=== PATIENT | male | born 1975 | race Two or more races ===

== ENCOUNTER 2016-06-08 18:40 | Emergency (ER) | payer OTHER ==
[~2016-06-08] VITALS: Ht 182.9 cm; Wt 109.0 kg
[2016-06-08 18:42] VITALS: BP 155/89; PULSE 86; RESP 16; TEMP 98.1; O2SAT 98
[2016-06-08] MEDS ORDERED: DICL75TA PO (19:14)
--- NOTE | 2016-06-08 19:17 | PD ---
HPI Chief Complaint: Injury Time Seen by Provider: 19:16 Travel History International Travel<30 days: No Contact w/Intl Traveler<30days: No Traveled to known affect area: No History of Present Illness HPI 41-year-old male presents to emergency department with complaints of right calf pain and swelling. He states that sometime around 12:30 this afternoon he had caught his leg between 2 machines at work. He states that one was backing up into the other and caught his right leg. He is up-to-date with immunizations. He was able to work the rest of the day and comes in for evaluation. He states the pain is mild to moderate. Worse with walking. Some relief with elevation. He is up-to-date with immunizations. He denies any numbness or tingling. Patient denies pain with movement of the toes. PFSH Past Medical History Medical History: Denies Significant Hx Immunizations Current: Yes Tetanus Vaccination: < 5 Years Influenza Vaccination: No Past Surgical History Surgical History: No Previous Surgery Social History Alcohol Use: No Tobacco Use: No Substance Use: No Allergies-Medications (Allergen,Severity, Reaction): Coded Allergies: No Known Allergies (Unverified , 06/08/16) Reported Meds & Prescriptions Reported Meds & Active Scripts Active Diclofenac Sodium DR (Diclofenac Sodium) 75 Mg Tabdr 75 Mg PO BID Review of Systems Except as stated in HPI: all other systems reviewed are Neg Physical Exam Narrative GENERAL: This is a well-nourished, well-developed patient, in no apparent distress. SKIN: No rashes, ecchymoses or lesions. Warm and dry. HEAD: Atraumatic. Normocephalic. EYES: PERRL, EOMI, no discharge or injection. No scleral icterus. EARS: Clear NOSE: Nasal turbinates appear normal. THROAT: Mucosa pink and moist. Airway patent. NECK: Trachea midline. supple, moves head freely. LUNGS: Clear to auscultation. CV: Regular in rhythm. ABDOMEN: Soft nontender. EXT: No clubbing cyanosis. He does have pain in the calf of movement at the ankle. His leg is notably swollen compared to the left. The calf is edematous but not tense. He has intact gross sensation distally to the foot area and he has good dorsalis pedis and posterior tibialis pulses. There are abrasions to the medial calf, anterior tibial area and lateral tibial area. There is no pain in the hip, knee, ankle or foot. The left lower extremity as well as upper extremities are unremarkable. Patient ambulates with a mild antalgic gait. Data Data Last Documented VS Vital Signs Date Time Temp Pulse Resp B/P Pulse Ox O2 Delivery O2 Flow Rate FiO2 06/08/16 18:47 06/08/16 18:42 98.1 86 16 98 Orders Tibia/Fibula (Ap/Lat) (06/08/16 19:35) Ice/Cold Pack (06/08/16 19:35) Ibuprofen (Motrin) (06/08/16 19:45) MDM Medical Decision Making Medical Screen Exam Complete: Yes Emergency Medical Condition: Yes Medical Record Reviewed: Yes Interpretation(s) Right tib-fib: Negative for acute bony injury. Differential Diagnosis MDM: High Differential diagnoses: Fracture, sprain, strain, dislocation, contusion, neurovascular injury, crush injury, compartment syndrome Narrative Course At this time his calf is not tense and compartment pressures are not indicated emergently. He has intact sensation with good distal pulses. He denies tingling or numbness. He is instructed heavily on elevation, ice and signs and symptoms of a compartment syndrome. He will be rechecked again tomorrow in 12 hours. X-ray of the right tib-fib is negative. This is right calf crush injury Diagnosis Primary Impression: right calf crush injury Patient Instructions: General Instructions Additional Instructions: Rest. Elevation. Ice packs for the next 3 days. Medications as directed. Monitor for numbness, tingling, increasing pain, or weakness. If he developed the symptoms return to the ER immediately. Follow-up in the ER tomorrow for recheck. Return to the ER if any problems Med/Other Pt SpecificInfo: Prescription(s) given Scripts Diclofenac Sodium DR 75 Mg Tabdr75 Mg PO BID #20 TAB Prov:Mague Villa MD 06/08/16 Disposition: 01 DISCHARGE HOME Condition: Stable Luis Manuel Marie Jun 08, 2016 19:17
[2016-06-08] MEDS ORDERED: IBUPROFEN 800 MG TAB PO ONE (19:45)
--- NOTE | 2016-06-08 20:22 | RADRPT ---
EXAM DATE/TIME: 06/08/2016 19:53 [facility] COMPARISON: No previous studies available for comparison. INDICATIONS : Right posterior disatl tibia pain with lateral abrasion MEDICAL HISTORY : None. SURGICAL HISTORY : None. ENCOUNTER: Initial ACUITY: 1 day PAIN SCORE: 7/10 LOCATION: Right Tibia FINDINGS: Two view examination of the right tibia demonstrates no evidence of fracture or dislocation. Bony mi neralization is normal. The soft tissue structures are intact. CONCLUSION: Normal examination for a patient of this age. Frankie Walsh MD FACR on June 08, 2016 at 20:20 Board Certified Radiologist. This report was verified electronically.
== END 2016-06-08 20:14 | disposition home or self-care (01) ==
LOC: NEPK 18:40
DX: S87.81XA Crushing injury of right lower leg, initial encounter (principal); W31.9XXA Contact with unspecified machinery, initial encounter; Y99.0 Civilian activity done for income or pay
CPT/HCPCS: 73590; 99283

== ENCOUNTER 2016-06-09 11:43 | Emergency (ER) | payer OTHER ==
[~2016-06-09] VITALS: Ht 182.9 cm; Wt 107.0 kg
[~2016-06-09 11:43] MED LIST: DICL75TA PO
[2016-06-09 11:46] VITALS: BP 144/78; PULSE 76; RESP 20; TEMP 98.8; O2SAT 98
--- NOTE | 2016-06-09 11:47 | PD ---
Physical Exam Time Seen by Provider: 11:45 Narrative 41 year old male presents for followup on crush injury to right calf occurred yesterday, still feels tight pain with dorsi/plantarflexion but improved from yesterday. Told to return for reevaluation. VSS Seen in triage. Awaiting bed placement. Data Data Last Documented VS Vital Signs Date Time Temp Pulse Resp B/P Pulse Ox O2 Delivery O2 Flow Rate FiO2 06/09/16 11:46 98.8 76 20 144/78 98 MDM Medical Record Reviewed: Yes Supervised Visit with SAHARA: Yes Ashutosh Pedroza Jun 09, 2016 11:47
--- NOTE | 2016-06-09 12:32 | PD ---
HPI Chief Complaint: Wound/Suture/Staple Re-Check Time Seen by Provider: 12:30 Travel History International Travel<30 days: No Contact w/Intl Traveler<30days: No Traveled to known affect area: No History of Present Illness HPI 41-year-old male presents to the emergency department for recheck of his right leg after experiencing a crush injury while at work yesterday. He was told to come back for reevaluation to make sure his legs did not have compartment syndrome after 12 hours. He reports mild improvement in the swelling of his leg. Says it still feels tight and pressure. He denies paresthesias or loss of sensation to the affected extremity. He has been elevating and icing it as directed. He has been using his crutches and not bearing weight as directed. Denies fever, chills, nausea, vomiting. Has been taking ibuprofen for pain. No known allergies. No other medical complaints. No other modifying factors or associated signs and symptoms. PFSH Past Medical History Immunizations Current: Yes Social History Alcohol Use: No Tobacco Use: No Substance Use: No Allergies-Medications (Allergen,Severity, Reaction): Coded Allergies: No Known Allergies (Unverified , 06/09/16) Reported Meds & Prescriptions Reported Meds & Active Scripts Active No Active Prescriptions or Reported Medications Review of Systems Except as stated in HPI: all other systems reviewed are Neg Physical Exam Narrative GENERAL: Well-nourished, well-developed male patient, in no acute distress; afebrile, nontoxic-appearing SKIN: Warm and dry. HEAD: Atraumatic. Normocephalic. EYES: Pupils equal and round. No scleral icterus. No injection or drainage. ENT: Mucosa pink and moist. Airway patent. NECK: Trachea midline. CARDIOVASCULAR: Regular rate. RESPIRATORY: No accessory muscle use. GASTROINTESTINAL: Rounded. MUSCULOSKELETAL: Right lower extremity is supple and tense without signs of compartment syndrome; the latest without erythema; 2+ pedal pulses and sensory intact; toes are pink and warm; bruising noted to the posterior calf; an abrasion noted to the lateral tidwell consistent with the area of bruising. No obvious deformities. No clubbing. No cyanosis. No edema. NEUROLOGICAL: Awake and alert. Oriented 3. No obvious cranial nerve deficits. Motor grossly within normal limits. Normal speech. PSYCHIATRIC: Appropriate mood and affect; insight and judgment normal. Data Data Last Documented VS Vital Signs Date Time Temp Pulse Resp B/P Pulse Ox O2 Delivery O2 Flow Rate FiO2 06/09/16 11:46 98.8 76 20 144/78 98 MDM Medical Decision Making Medical Screen Exam Complete: Yes Emergency Medical Condition: Yes Medical Record Reviewed: Yes Differential Diagnosis Medical clearance, recheck of crushing injury of right leg, less likely compartment syndrome Narrative Course 41-year-old male returns after a crush injury that occurred yesterday while at work for reevaluation of his right lower extremity to rule out compartment syndrome. Patient reports mild improvement in symptoms but still is complaining of pressure and tightness to the calf area. The calf area is tense. There is no erythema or edema to the area. 2+ pedal pulses present and sensory intact. Toes are pink and warm. Patient denies paresthesias, loss of sensation. I instructed the patient to return to the emergency department in 24 hours, or earlier if worsening of symptoms, for reevaluation and clearance to return back to work. The patient will return back to the emergency department tomorrow for reevaluation. Instructed patient to continue elevation , icing, and support with crutches. Patient does not have an established primary care provider to follow up with. Patient verbalizes understanding and agreement with treatment plan. Patient is medically cleared and stable for discharge. Discussed reasons to return to the emergency department. Instructed patient to follow up with primary care provider. Patient agrees with treatment plan. The patients vital signs are stable and the patient is stable for outpatient follow-up and treatment. Patient discharged home, stable and in no acute distress. Diagnosis Primary Impression: Crushing injury of right leg Qualified Code: S87.81XD - Crushing injury of right leg, subsequent encounter Referrals: Primary Care Physician Patient Instructions: Compartment Syndrome (GEN), Crush Injury (ED), General Instructions Departure Forms: Tests/Procedures, Work Release Enter return to work date: Jun 11, 2016 Additional Instructions: Return to the emergency department in 24 hours for recheck of leg and medical clearance to return to work on Follow-up with primary care provider Return to the emergency department immediately with worsening of symptoms, particularly as discussed Med/Other Pt SpecificInfo: No Change to Meds, No Meds Exist/No RX given Scripts No Active Prescriptions or Reported Meds Disposition: DISCHARGE HOME Condition: Stable Rassi,Selena K RESEARCH AND DEVELOPMENT SCIENTIST Jun 09, 2016 12:32
== END 2016-06-09 12:46 | disposition home or self-care (01) ==
LOC: NEPK 11:43
DX: S87.81XD Crushing injury of right lower leg, subsequent encounter (principal); W23.0XXD Caught, crushed, jammed, or pinched between moving objects, subsequent encounter; Y99.0 Civilian activity done for income or pay
CPT/HCPCS: 99282

== ENCOUNTER 2016-06-11 12:43 | Emergency (ER) | payer OTHER ==
[~2016-06-11] VITALS: Ht 182.9 cm; Wt 108.0 kg
[2016-06-11 12:45] VITALS: BP 137/75; PULSE 78; RESP 20; TEMP 98.9; O2SAT 98
--- NOTE | 2016-06-11 13:21 | PD ---
HPI . recheck of right leg Chief Complaint: Medical Clearance Time Seen by Provider: 13:20 Travel History International Travel<30 days: No Contact w/Intl Traveler<30days: No Traveled to known affect area: No History of Present Illness HPI 41-year-old male presents to the emergency department for recheck of his right leg after experiencing a crush injury while a few days ago. He is wanting clearance to return to work. He also tells me he is trying to see if he has a case and has reached out to attorneys. He was told to come back for reevaluation to make sure his legs did not have compartment syndrome. He reports mild improvement in the swelling of his leg, but tells me still feels tight and that he has pain/pressure with trying to use it. He denies paresthesias or loss of sensation to the affected extremity. He has been elevating and icing it as directed. He has not been using his crutches as instructed to do. Denies fever, chills, nausea, vomiting. No other medical complaints. PFSH Past Medical History Asthma: No Blood Disorders: No Heart Rhythm Problems: No Cancer: No Cardiovascular Problems: Yes High Cholesterol: No Chemotherapy: No Chest Pain: No Congestive Heart Failure: No COPD: No Diabetes: No Endocrine: No Genitourinary: No Hypertension: Yes ("slight" per pt.) Immune Disorder: No Musculoskeletal: No Neurologic: No Psychiatric: No Reproductive: No Respiratory: No Radiation Therapy: No Sleep Apnea: No Thyroid Disease: No Past Surgical History Abdominal Surgery: Yes (STENT RIGHT SIDE 05/2013) Social History Alcohol Use: No Tobacco Use: Yes (03/03 PPD) Substance Use: Yes (Marijauna Daily) Allergies-Medications (Allergen,Severity, Reaction): Coded Allergies: No Known Allergies (Unverified , 06/11/16) Reported Meds & Prescriptions Reported Meds & Active Scripts Active Reported Diclofenac Sodium DR (Diclofenac Sodium) 75 Mg Tabdr 75 Mg PO BID Review of Systems General / Constitutional: No: Fever Eyes: No: Visual changes HENT: No: Headaches Cardiovascular: No: Chest Pain or Discomfort Respiratory: No: Shortness of Breath Gastrointestinal: No: Abdominal Pain Genitourinary: No: Dysuria Musculoskeletal: Positive: Pain (right leg pain ) Skin: No Rash Neurologic: No: Weakness Psychiatric: No: Depression Endocrine: No: Polydipsia Hematologic/Lymphatic: No: Easy Bruising Physical Exam Narrative GENERAL: AAO x 3, no acute distress, Well-nourished, well-developed patient. SKIN: Warm and dry. No visible rashes or bruising. HEAD: Normocephalic and atraumatic. EYES: No scleral icterus. No injection or drainage. ENT: No nasal drainage noted. Mucous membranes pink. Airway patent. NECK: Supple, trachea midline. No JVD. CARDIOVASCULAR: Regular rate and rhythm without murmurs, gallops, or rubs. RESPIRATORY: Breath sounds equal bilaterally. No accessory muscle use. No rhonchi or rales. GASTROINTESTINAL: Abdomen soft, non-tender, nondistended. EXTREMITIES: right calf with resolving ecchymosis. tightness is reducing per patient and Selena Cortez WAREHOUSE GUARD. There is still some tightness. Pain elicited with dorsi and plantar flexion. Area is tender to touch. There is no obvious compartment syndrome. BACK: Nontender without obvious deformity. No CVA tenderness. PSYCH: AAO x 3, normal affect. Data Data Last Documented VS Vital Signs Date Time Temp Pulse Resp B/P Pulse Ox O2 Delivery O2 Flow Rate FiO2 06/11/16 12:45 98.9 78 20 137/75 98 Room Air MDM Medical Decision Making Medical Screen Exam Complete: Yes Emergency Medical Condition: Yes Medical Record Reviewed: Yes Differential Diagnosis right leg crush injury, less likely cellulitis, less likely compartment syndrome Narrative Course 41-year-old male presents to the emergency department for recheck of his right leg after experiencing a crush injury while at work yesterday. He was told to come back for reevaluation to make sure his legs did not have compartment syndrome after 12 hours. He reports mild improvement in the swelling of his leg. Says it still feels tight and pressure. He denies paresthesias or loss of sensation to the affected extremity. He has been elevating and icing it as directed. He has been using his crutches and not bearing weight as directed. Denies fever, chills, nausea, vomiting. Has been taking ibuprofen for pain. No known allergies. No other medical complaints. No other modifying factors or associated signs and symptoms. Patient seen and examined. I have discussed this case with Selena Cortez WAREHOUSE GUARD. She actually had this patient previously and tells me that his right leg has improved. This is my first time seeing the patient and he does still have some pain with dorsi and plantar flexion. There is also some ecchymosis that is clearing, but still present. The extremities still feels tight, but you can see that the muscles and tissue is loosening. Unfortunately I do not feel this patient can return to work at this moment. I have explained this to him. I've advised that he return to the emergency department tomorrow for another reevaluation. He has not been using his crutches as instructed to. I've advised him to try to be nonweightbearing, keep leg elevated and to use ice to this area. I've explained to him that this will not get better unless he follows these instructions. Patient verbalized understanding of instructions, questions were answered, and thanked me for their care. I advised them if their condition worsens, please return to the nearest emergency room for further care. Diagnosis Primary Impression: Crush injury lower leg Qualified Code: S87.81XD - Crush injury lower leg, right, subsequent encounter Additional Instructions: Rest the affected area as much as possible. Ice this area for 15-20 minutes at a time. You can do this every hour or as much as tolerated. Elevate this area. Use ibuprofen as needed for pain and inflammation. Please use the crutches when moving around. Med/Other Pt SpecificInfo: No Change to Meds Disposition: 01 DISCHARGE HOME Condition: Stable Bryanna Raygoza Jun 11, 2016 13:20
[2016-06-11] MEDS ORDERED: DICL75TA PO (13:26)
== END 2016-06-11 14:31 | disposition home or self-care (01) ==
LOC: MERGE 12:43 → NEPK 12:43
DX: S87.81XD Crushing injury of right lower leg, subsequent encounter (principal); W23.0XXA Caught, crushed, jammed, or pinched between moving objects, initial encounter
CPT/HCPCS: 99283

== ENCOUNTER 2016-06-13 19:26 | Emergency (ER) | payer OTHER ==
[~2016-06-13] VITALS: Ht 185.4 cm; Wt 99.0 kg
[2016-06-13 19:32] VITALS: BP 125/63; PULSE 80; RESP 16; TEMP 98.5; O2SAT 99
--- NOTE | 2016-06-13 20:19 | PD ---
HPI Chief Complaint: Wound/Suture/Staple Re-Check Time Seen by Provider: 20:10 Travel History International Travel<30 days: No Contact w/Intl Traveler<30days: No Traveled to known affect area: No History of Present Illness HPI 41-year-old male presents to emergency department follow-up crush injury to the right lower leg on 06/08/2016. Patient's been seen twice prior to this visit with x-rays performed on 06/08/2016. 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 Patient was seen 2 days ago and was felt to be improving. Today the patient states he's had increased swelling and erythema around what appears to be a superficial abrasion to the right proximal medial calf. Patient states no numbness distally , he is able to wiggle his toes without pain, but has increased pain with dorsiflexion and mildly with plantar flexion. He feels the swelling in the calf is worse than it was 2 days ago. Patient has been taking [id number] ibuprofen and Tylenol without much relief. Patient denies fever chills or drainage. Patient is currently not on a Worker's Comp., and states his employer was supposed to be paying for his visits. He is concerned about possible compartment syndrome or infection. He has no known drug allergies. PFSH Past Medical History Asthma: No Blood Disorders: No Heart Rhythm Problems: No Cancer: No Cardiovascular Problems: Yes High Cholesterol: No Chemotherapy: No Chest Pain: No Congestive Heart Failure: No COPD: No Diabetes: No Endocrine: No Genitourinary: No Hypertension: Yes ("slight" per pt.) Immune Disorder: No Musculoskeletal: No Neurologic: No Psychiatric: No Reproductive: No Respiratory: No Radiation Therapy: No Sleep Apnea: No Thyroid Disease: No Past Surgical History Abdominal Surgery: Yes (STENT RIGHT SIDE 05/2013) Social History Alcohol Use: No Tobacco Use: No (quit) Substance Use: No (denies) Allergies-Medications (Allergen,Severity, Reaction): Coded Allergies: No Known Allergies (Unverified , 06/13/16) Reported Meds & Prescriptions Reported Meds & Active Scripts Active Reported Diclofenac Sodium DR (Diclofenac Sodium) 75 Mg Tabdr 75 Mg PO BID Review of Systems Except as stated in HPI: all other systems reviewed are Neg General / Constitutional: No: Fever, Chills Eyes: No: Visual changes HENT: No: Headaches Cardiovascular: No: Chest Pain or Discomfort Respiratory: No: Shortness of Breath Gastrointestinal: No: Abdominal Pain Genitourinary: No: Dysuria Musculoskeletal: Positive: Myalgias, Limited ROM, Edema, Pain (see history present illness.) Skin: Positive Lesions (abrasion to the right lower medial calf), No Rash Neurologic: No: Weakness Psychiatric: No: Depression Endocrine: No: Polydipsia Hematologic/Lymphatic: No: Easy Bruising Physical Exam Narrative GENERAL: Patient appears in mild distress. SKIN: Warm and dry. Normal color. Normal turgor. Patient has healing abrasion to the right medial upper calf measuring 6 cm x 3 cm with localized tenderness, induration, and erythema. No obvious drainage is noted. There is no streaking. Patient has ecchymosis from this wound site medially and distally with localized firm tenderness to the calf. HEAD: Atraumatic. Normocephalic. EYES: Pupils equal and round. No scleral icterus. No injection or drainage. ENT: No nasal bleeding or discharge. Mucous membranes pink and moist. Pharynx is normal. Airway is patent. NECK: Trachea midline. Supple nontender. CARDIOVASCULAR: Regular rate and rhythm. RESPIRATORY: No accessory muscle use. Clear to auscultation. Breath sounds equal bilaterally. MUSCULOSKELETAL: Extremities without clubbing, cyanosis, or edema. No obvious deformities. Patient has normal capillary refill in the lower extremity. Pedal and posterior tibialis pulses are one plus and equal bilaterally. Patient has a positive Homans sign on the right. Range of motion is limited secondary to pain. NEUROLOGICAL: Awake and alert. No obvious cranial nerve deficits. Motor grossly within normal limits. Five out of 5 muscle strength in the arms and legs. Normal speech. PSYCHIATRIC: Appropriate mood and affect; insight and judgment normal. Data Data Last Documented VS Vital Signs Date Time Temp Pulse Resp B/P Pulse Ox O2 Delivery O2 Flow Rate FiO2 06/13/16 19:32 98.5 80 16 125/63 99 Room Air Orders Tibia/Fibula (Ap/Lat) (06/13/16 20:19) Complete Blood Count With Diff (06/13/16 20:19) Comprehensive Metabolic Panel (06/13/16 20:19) Prothrombin Time / Inr (Pt) (06/13/16 20:19) Act Partial Throm Time (Ptt) (06/13/16 20:19) Iv Access Insert/Monitor (06/13/16 20:19) Ketorolac Inj (Toradol Inj) (06/13/16 20:30) Clindamycin Inj (Cleocin Inj) (06/13/16 20:30) Us Leg Venous Doppler (06/13/16 20:19) Sodium Chlor 0.9% 1000 Ml Inj (Ns 1000 M (06/13/16 21:00) Labs Laboratory Tests Test 06/13/16 20:28 White Blood Count 9.0 TH/MM3 Red Blood Count 5.35 MIL/MM3 Hemoglobin 15.0 GM/DL Hematocrit 45.2 % Mean Corpuscular Volume 84.4 FL Mean Corpuscular Hemoglobin 27.9 PG Mean Corpuscular Hemoglobin 33.1 % Concent Red Cell Distribution Width 13.8 % Platelet Count 229 TH/MM3 Mean Platelet Volume 7.0 FL Neutrophils (%) (Auto) 74.0 % Lymphocytes (%) (Auto) 17.2 % Monocytes (%) (Auto) 6.4 % Eosinophils (%) (Auto) 1.2 % Basophils (%) (Auto) 1.2 % Neutrophils # (Auto) 6.7 TH/MM3 Lymphocytes # (Auto) 1.5 TH/MM3 Monocytes # (Auto) 0.6 TH/MM3 Eosinophils # (Auto) 0.1 TH/MM3 Basophils # (Auto) 0.1 TH/MM3 CBC Comment DIFF FINAL Differential Comment Prothrombin Time 10.0 SEC Prothromb Time International 0.9 RATIO Ratio Activated Partial 26.5 SEC Thromboplast Time Sodium Level 140 MEQ/L Potassium Level 3.8 MEQ/L Chloride Level 106 MEQ/L Carbon Dioxide Level 24.9 MEQ/L Anion Gap 9 MEQ/L Blood Urea Nitrogen 9 MG/DL Creatinine 1.33 MG/DL Estimat Glomerular Filtration 59 ML/MIN Rate Random Glucose 101 MG/DL Calcium Level 8.5 MG/DL Total Bilirubin 0.8 MG/DL Aspartate Amino Transf 23 U/L (AST/SGOT) Alanine Aminotransferase 28 U/L (ALT/SGPT) Alkaline Phosphatase 67 U/L Total Protein 7.6 GM/DL Albumin 3.8 GM/DL [facility] Medical Decision Making Medical Screen Exam Complete: Yes Emergency Medical Condition: Yes Medical Record Reviewed: Yes Differential Diagnosis Right calf crush injury. Cellulitis. Abrasion. Hematoma. DVT. Compartment syndrome. Fracture. Narrative Course Patient is medically stable at time of exam. Labs are ordered including CBC, CMP, and coagulations studies. IV access is obtained patient is given 30 mg Toradol IV as well as 600 mg clindamycin IV. X-ray of the right lower extremity is ordered to rule out hairline fracture. Ultrasound of the right lower extremity is ordered. CBC is unremarkable. CMP is unremarkable except for creatinine 1.33, this is not significantly different from previous labs from several years ago. X-ray shows no acute fracture or other findings per radiologist. Ultrasound shows no obvious DVT per radiologist. Patient is discussed with Dr. Eagle, and he examines the patient as well. Patient will be treated on an outpatient basis with Keflex 500 mg 3 times a day 7 days as well as Bactrim DS twice a day 7 days. Patient is given a prescription for ibuprofen 600 mg 4 times a day #40. Patient also take Tylenol 500 mg 2 tabs every 6 hours when necessary pain #60. Patient is to keep THIS area as much as possible and keep it elevated as well. Patient is to ambulate as tolerated with crutches. Patient is not to return to work until cleared. Diagnosis Primary Impression: Crush injury lower leg Qualified Code: S87.81XD - Crush injury lower leg, right, subsequent encounter Additional Impression: Cellulitis Qualified Code: L03.115 - Cellulitis of right lower extremity Patient Instructions: Cellulitis (ED), Crush Injury (ED), General Instructions Departure Forms: Work Release Special Instructions: Patient is not to return to work until cleared medically. Additional Instructions: Patient will be treated on an outpatient basis with Keflex 500 mg 3 times a day 7 days as well as Bactrim DS twice a day 7 days. Patient is given a prescription for ibuprofen 600 mg 4 times a day #40. Patient also take Tylenol 500 mg 2 tabs every 6 hours when necessary pain #60. Patient is to keep THIS area as much as possible and keep it elevated as well. Patient is to ambulate as tolerated with crutches. Patient is not to return to work until cleared. Med/Other Pt SpecificInfo: Prescription(s) given Disposition: DISCHARGE HOME Condition: Stable Craig Hanks Jun 13, 2016 20:19
[2016-06-13] MEDS ORDERED: KETOROLAC TROMETHAMINE 30 MG/ML (IVP) VIAL IVP ONE (20:30)
[2016-06-13] MEDS ORDERED: CLINDAMYCIN INJ 600 MG in SODIUM CHLORIDE 0.9% INJ 100 ML IV ONE (20:30)
[2016-06-13 20:35] LABS: AUTOMATED NEUTROPHIL # 6.7 TH/MM3 (1.8-7.7); BASOPHIL # 0.1 TH/MM3 (0-0.2); BASOPHIL % 1.2 % (0.0-2.0); EOSINOPHIL # 0.1 TH/MM3 (0-0.4); EOSINOPHIL % 1.2 % (0.0-4.0); HEMATOCRIT 45.2 % (39.0-51.0); HEMO FLAGS DIFF FINAL; LYMPH % 17.2 % (9.0-44.0); LYMPHOCYTE # 1.5 TH/MM3 (1.0-4.8); MEAN CELL VOLUME 84.4 FL (80.0-100.0); MEAN CORPUSCULAR HEMOGLOBIN 27.9 PG (27.0-34.0); MEAN CORPUSCULAR HGB CONC 33.1 % (32.0-36.0); MONO % 6.4 % (0.0-8.0); PLATELET COUNT 229 TH/MM3 (150-450); RED BLOOD COUNT 5.35 MIL/MM3 (4.50-5.90); RED CELL DISTRIBUTION WIDTH 13.8 % (11.6-17.2)
[2016-06-13 20:48] LABS: APTT (PATIENT) 26.5 SEC (24.3-30.1); INTERNATIONAL NORMALIZED RATIO 0.9 RATIO
[2016-06-13 20:50] LABS: ANION GAP 9 MEQ/L (5-15); AST (GOT) 23 U/L (15-37); BICARBONATE 24.9 MEQ/L (21.0-32.0); BLOOD UREA NITROGEN 9 MG/DL (7-18); CHLORIDE 106 MEQ/L (98-107); GLOMERULAR FILTRATION RATE 59 ML/MIN (>89); POTASSIUM 3.8 MEQ/L (3.5-5.1); SODIUM (NA) 140 MEQ/L (136-145)
[2016-06-13 20:53] LABS: ALKALINE PHOSPHATASE 67 U/L (45-117); ALT (GPT) 28 U/L (12-78); TOTAL BILIRUBIN ADULT 0.8 MG/DL (0.2-1.0)
--- NOTE | 2016-06-13 20:57 | RADRPT ---
EXAM DATE/TIME: 06/13/2016 20:40 [facility] COMPARISON: No previous studies available for comparison. INDICATIONS : Got leg caught in machine, laceration to medial thigh. MEDICAL HISTORY : None. SURGICAL HISTORY : None. ENCOUNTER: Initial ACUITY: 1 day PAIN SCORE: 5/10 LOCATION: Right Tib fib FINDINGS: Two view examination of the right tibia demonstrates no evidence of fracture or dislocation. Bony mi neralization is normal. The soft tissue structures are intact. CONCLUSION: Normal examination for a patient of this age. Luis Manuel Torres MD on June 13, 2016 at 20:54 Board Certified Radiologist. This report was verified electronically.
[2016-06-13] MEDS ORDERED: SODIUM CHLOR 0.9% 1000 ML INJ 1,000 ML IV ONE (21:00)
--- NOTE | 2016-06-13 21:47 | RADRPT ---
EXAM DATE/TIME: 06/13/2016 21:08 [facility] COMPARISON: No previous studies available for comparison. INDICATIONS : Right leg swelling and pain. MEDICAL HISTORY : Hypertension. Renal calculi. Right leg crush injury 5d ago. SURGICAL HISTORY : Abdominal stent. ENCOUNTER: Initial ACUITY: 4 - 6 days PAIN SCORE: 7/10 LOCATION: Right leg. TECHNIQUE: Venous ultrasound of the leg was performed from the inguinal ligament to the proximal calf. Real-ambrose e, color Doppler and spectral tracing, compression and augmentation techniques were used. FINDINGS: There is normal compressibility of the deep venous system from the inguinal region to the proximal ca lf. No echogenic clot is seen in the lumen of the common femoral, femoral, popliteal, and posterior tibial veins. There is a normal response of the venous system to proximal and distal augmentation an d respiration. CONCLUSION: Negative for deep venous thrombosis. Luis Manuel Torres MD on June 13, 2016 at 21:38 Board Certified Radiologist. This report was verified electronically.
[2016-06-13 22:07] VITALS: RESP 18
[2016-06-13] MEDS ORDERED: IBUP-232 PO (22:07)
[2016-06-13] MEDS ORDERED: BACT800T5 PO (22:07)
[2016-06-13] MEDS ORDERED: EXTR500C PO (22:07)
[2016-06-13] MEDS ORDERED: CEPH-460 PO (22:07)
== END 2016-06-13 22:44 | disposition home or self-care (01) ==
LOC: NEPE 19:26 → MERGE 19:26 → NEPE 22:44
DX: R60.0 Localized edema (principal); S80.11XD Contusion of right lower leg, subsequent encounter; S87.81XD Crushing injury of right lower leg, subsequent encounter; L03.115 Cellulitis of right lower limb; W23.0XXD Caught, crushed, jammed, or pinched between moving objects, subsequent encounter
CPT/HCPCS: 73590; 80053; 85025; 85610; 85730; 93971; 96365; 96375; 99284; J1885; J7030

== ENCOUNTER 2016-06-18 10:32 | Emergency (ER) | payer OTHER ==
[~2016-06-18] VITALS: Ht 182.9 cm; Wt 107.0 kg
[~2016-06-18 10:32] MED LIST changes: +BACT800T5 PO; +CEPH-460 PO; +EXTR500C PO; +IBUP-232 PO
[2016-06-18 10:35] VITALS: BP 125/75; PULSE 77; RESP 17; TEMP 97.9; O2SAT 98
--- NOTE | 2016-06-18 10:42 | PD ---
HPI . needs clearance for work Chief Complaint: Skin Problem Time Seen by Provider: 10:42 Travel History International Travel<30 days: No Contact w/Intl Traveler<30days: No Traveled to known affect area: No History of Present Illness HPI 41-year-old male who sustained a crush injury to the right lower extremity on June 08, 2016 here requesting clearance to return to work. Patient had been seen on June 11 by myself, and also was seen on June 13, 2016 for continued pain in his right leg. On the of this month patient received an x-ray without any acute findings, venous Doppler was negative, he did have a mild cellulitis which he was prescribed antibiotics for. He tells me he is taking the antibiotics as prescribed and the area is improving. He is still complaining of pain with plantar and dorsiflexion of his right foot. He also has pain with walking. He tells me that his injuries are improving, but he still has significant pain and difficulty moving. Ironically he is not using his crutches and tells me that he recently threw them away. He says that the last provider told him that he could use them sparingly. Today he is requesting clearance to return to work despite the continued pain he is experiencing. PFSH Past Medical History Asthma: No Blood Disorders: No Heart Rhythm Problems: No Cancer: No Cardiovascular Problems: Yes High Cholesterol: No Chemotherapy: No Chest Pain: No Congestive Heart Failure: No COPD: No Diabetes: No Endocrine: No Genitourinary: No Hypertension: Yes Immune Disorder: No Musculoskeletal: No Neurologic: No Psychiatric: No Reproductive: No Respiratory: No Radiation Therapy: No Sleep Apnea: No Thyroid Disease: No Past Surgical History Abdominal Surgery: Yes (STENT RIGHT SIDE 05/2013) Other Surgery: No Social History Alcohol Use: No Tobacco Use: No (quit) Substance Use: No (denies) Allergies-Medications (Allergen,Severity, Reaction): Coded Allergies: No Known Allergies (Unverified , 06/18/16) Reported Meds & Prescriptions Reported Meds & Active Scripts Active Keflex (Cephalexin) 500 Mg Cap 500 Mg PO Q8H Ibuprofen 600 Mg Tab 600 Mg PO Q6H PRN Bactrim DS (Sulfamethoxazole-Trimethoprim) 800-160 Mg Tab 1 Tab PO BID Acetaminophen Extra Strength (Acetaminophen) 500 Mg Cap 1,000 Mg PO Q6H PRN Reported Diclofenac Sodium DR (Diclofenac Sodium) 75 Mg Tabdr 75 Mg PO BID Review of Systems General / Constitutional: No: Fever Eyes: No: Visual changes HENT: No: Headaches Cardiovascular: No: Chest Pain or Discomfort Respiratory: No: Shortness of Breath Gastrointestinal: No: Abdominal Pain Genitourinary: No: Dysuria Musculoskeletal: Positive: Pain (RLE) Skin: No Rash Neurologic: No: Weakness Psychiatric: No: Depression Endocrine: No: Polydipsia Hematologic/Lymphatic: No: Easy Bruising Physical Exam Narrative GENERAL: AAO x 3, no acute distress, Well-nourished, well-developed patient. SKIN: Warm and dry. No visible rashes or bruising. right medial calf with small abrasion that is healing well without any evidence of acute infection. no purulence or significant erythema no warmth. There is some mild ecchymosis to the right medial leg, mid calf that appears to be clearing. HEAD: Normocephalic and atraumatic. EYES: No scleral icterus. No injection or drainage. ENT: No nasal drainage noted. Mucous membranes pink. Airway patent. NECK: Supple, trachea midline. No JVD. CARDIOVASCULAR: Regular rate and rhythm without murmurs, gallops, or rubs. RESPIRATORY: Breath sounds equal bilaterally. No accessory muscle use. No rhonchi or rales. GASTROINTESTINAL: Abdomen soft, non-tender, nondistended. EXTREMITIES: No cyanosis or edema. Right leg: pulses are intact (pedal/ posterior tibial). Pain elicited with cesario and plantar flexion. He has tenderness over the calf muscle with light palpation.ROM of Knee normal. Left leg normal. BACK: Nontender without obvious deformity. No CVA tenderness. PSYCH: AAO x 3, normal affect. Data Data Last Documented VS Vital Signs Date Time Temp Pulse Resp B/P Pulse Ox O2 Delivery O2 Flow Rate FiO2 06/18/16 10:35 97.9 77 17 125/75 98 MDM Medical Decision Making Medical Screen Exam Complete: Yes Emergency Medical Condition: Yes Medical Record Reviewed: Yes Differential Diagnosis crush injury lower leg, cellulitis, leg pain Narrative Course 41-year-old male who sustained a crush injury to the right lower extremity on June 08, 2016 here requesting clearance to return to work. Patient had been seen on June 11 by myself, and also was seen on June 13, 2016 for continued pain in his right leg. On the 15 of this month patient received an x-ray without any acute findings, venous Doppler was negative, he did have a mild cellulitis which he was prescribed antibiotics for. He tells me he is taking the antibiotics as prescribed and the area is improving. He is still complaining of pain with plantar and dorsiflexion of his right foot. He also has pain with walking. He tells me that his injuries are improving, but he still has significant pain and difficulty moving. Ironically he is not using his crutches and tells me that he recently threw them away. He says that the last provider told him that he could use them sparingly. Today he is requesting clearance to return to work despite the continued pain he is experiencing. Patient seen and examined. He has some pain with dorsi and plantar flexion of the right foot. He also some tenderness with palpation to the calf. He has a cellulitis that is improving. There are no signs of active infection. Continue antibiotics. I have advised the patient that all of the testing we have performed so far is negative. He will need to seek consultation from operations and maintenance specialist for further recommendations regarding this crush injury. Unfortunately there appears to be some confusion with his workers compensation versus insurance. Apparently patient's employer is agreeing to pay for everything out of pocket per financial counselor's and patient. I've advised the patient that he will need to see an orthopedist. He was understanding. He'll also need to follow-up with primary care provider. I provided him with information for [employer]. I've explained to him that, if he were to use his crutches as instructed, it is likely that his leg would have been a little better. He has not been nonweightbearing the entire duration of the injury as well as instructed him to do, which may be contributing to his issues. He has been advised to continue to use ice as needed. He can use over-the- counter anti-inflammatories as instructed on the bottle. Patient verbalized understanding of instructions, questions were answered, and thanked me for their care. I advised them if their condition worsens, please return to the nearest emergency room for further care. Diagnosis Primary Impression: Crush injury lower leg Qualified Code: S87.81XD - Crush injury lower leg, right, subsequent encounter Additional Impression: Cellulitis Qualified Code: L03.115 - Cellulitis of right lower extremity Referrals: Orthopedist Patient Instructions: General Instructions Additional Instructions: Please return to emergency department if your symptoms return or worsen. Follow up with your primary care provider. Continue antibiotics until complete. Please follow-up with an orthopedist for further recommendations and clearance to return to work. Disposition: 01 DISCHARGE HOME Condition: Stable Bryanna Raygoza Jun 18, 2016 10:42
== END 2016-06-18 11:52 | disposition home or self-care (01) ==
LOC: NEPK 10:32 → MERGE 10:32 → NEPK 11:52
DX: S87.81XD Crushing injury of right lower leg, subsequent encounter (principal); L03.115 Cellulitis of right lower limb; X58.XXXD Exposure to other specified factors, subsequent encounter
CPT/HCPCS: 99282

== ENCOUNTER 2017-01-05 09:30 | Emergency (ER) | payer OTHER ==
[~2017-01-05] VITALS: Ht 182.9 cm; Wt 100.0 kg
[2017-01-05 09:31] VITALS: BP 139/93; PULSE 67; RESP 18; TEMP 98.7; O2SAT 98
[2017-01-05] MEDS ORDERED: IBUP1TAB7 PO (11:12)
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
== END 2017-01-05 11:51 | disposition home or self-care (01) ==
LOC: NEPD 09:30
DX: S39.012A Strain of muscle, fascia and tendon of lower back, initial encounter (principal); V59.50XA Passenger in pick-up truck or van injured in collision with unspecified motor vehicles in traffic accident, initial encounter; Y92.410 Unspecified street and highway as the place of occurrence of the external cause
CPT/HCPCS: 99283

== ENCOUNTER 2017-03-15 04:55 | Emergency (ER) | payer OTHER ==
[~2017-03-15] VITALS: Ht 182.9 cm; Wt 111.2 kg
[~2017-03-15 04:55] MED LIST changes: +IBUP1TAB7 PO
[2017-03-15 05:01] VITALS: BP 159/95; PULSE 64; RESP 24; TEMP 98.1; O2SAT 98
[2017-03-15] MEDS ORDERED: SODIUM CHLOR 0.9% 1000 ML INJ 1,000 ML IV ONE ×3 (06:13→09:15)
[2017-03-15] MEDS ORDERED: HYDROmorphone HCL PF 2 MG/ML VIAL IVS ONE (06:15)
[2017-03-15] MEDS ORDERED: KETOROLAC TROMETHAMINE 30 MG/ML (IVP) VIAL IV PUSH ONE (06:15)
[2017-03-15] MEDS ORDERED: SODIUM CHLORIDE 0.9% FLUSH 10 ML FLUSH IVF PRN (06:15)
--- NOTE | 2017-03-15 06:18 | PD ---
HPI Chief Complaint: Flank/Kidney Pain Time Seen by Provider: 06:09 Travel History International Travel<30 days: No Contact w/Intl Traveler<30days: No Traveled to known affect area: No History of Present Illness HPI The patient is a 41-year-old male with a history of kidney stones who complains of these typical sharp right sided flank pain beginning at 2:00 this morning. He does have nausea and vomiting. He denies any fever, dysuria, frequency or urgency. His pain is high up on the flank and does not reach the right UVJ completely. PFSH Past Medical History Asthma: No Blood Disorders: No Heart Rhythm Problems: No Cancer: No Cardiovascular Problems: Yes High Cholesterol: No Chemotherapy: No Chest Pain: No Congestive Heart Failure: No COPD: No Diabetes: No Endocrine: No Genitourinary: No Hypertension: Yes Immune Disorder: No Kidney Stones: Yes Musculoskeletal: No Neurologic: No Psychiatric: No Reproductive: No Respiratory: No Immunizations Current: Yes Radiation Therapy: No Sleep Apnea: No Thyroid Disease: No Influenza Vaccination: No Past Surgical History Abdominal Surgery: Yes (STENT RIGHT SIDE 05/2013: KIDNEY) Other Surgery: No Social History Alcohol Use: No Tobacco Use: Yes (05/02 PPD) Substance Use: No Allergies-Medications (Allergen,Severity, Reaction): Coded Allergies: No Known Allergies (Unverified Adverse Reaction, Unknown, 03/15/17) Reported Meds & Prescriptions Reported Meds & Active Scripts Active Ibuprofen 800 Mg Tab 800 Mg PO Q6HR PRN Keflex (Cephalexin) 500 Mg Cap 500 Mg PO Q8H Ibuprofen 600 Mg Tab 600 Mg PO Q6H PRN Bactrim DS (Sulfamethoxazole-Trimethoprim) 800-160 Mg Tab 1 Tab PO BID Acetaminophen Extra Strength (Acetaminophen) 500 Mg Cap 1,000 Mg PO Q6H PRN Reported Diclofenac Sodium DR (Diclofenac Sodium) 75 Mg Tabdr 75 Mg PO BID Review of Systems Except as stated in HPI: all other systems reviewed are Neg Physical Exam Narrative GENERAL: The patient is alert, oriented 3 in moderate distress with his right flank pain. His vital signs show blood pressure 159/95 but otherwise normal. SKIN: Focused skin assessment warm/dry. HEAD: Atraumatic. Normocephalic. EYES: Pupils equal and round. No scleral icterus. No injection or drainage. ENT: No nasal bleeding or discharge. Mucous membranes pink and moist. NECK: Trachea midline. No JVD. CARDIOVASCULAR: Regular rate and rhythm. No murmur appreciated. RESPIRATORY: No accessory muscle use. Clear to auscultation. Breath sounds equal bilaterally. GASTROINTESTINAL: Abdomen soft, with minimal tenderness to direct palpation over the right flank, nondistended. Hepatic and splenic margins not palpable. No guarding or rebound is present. MUSCULOSKELETAL: No obvious deformities. No clubbing. No cyanosis. No edema. NEUROLOGICAL: Awake and alert. No obvious cranial nerve deficits. Motor grossly within normal limits. Normal speech. PSYCHIATRIC: Appropriate mood and affect; insight and judgment normal. Data Data Last Documented VS Vital Signs Date Time Temp Pulse Resp B/P (MAP) Pulse Ox O2 Delivery O2 Flow Rate FiO2 03/15/17 06:34 59 16 159/77 (104) 96 03/15/17 05:01 98.1 Orders Orders Complete Blood Count With Diff (03/15/17 06:13) Basic Metabolic Panel (Bmp) (03/15/17 06:13) Urinalysis - C+S If Indicated (03/15/17 06:13) Ecg Monitoring (03/15/17 06:13) Iv Access Insert/Monitor (03/15/17 06:13) Hydromorphone Pf Inj (Dilaudid Pf Inj) (03/15/17 06:15) Ketorolac Inj (Toradol Inj) (03/15/17 06:15) Sodium Chloride 0.9% Flush (Ns Flush) (03/15/17 06:15) Sodium Chlor 0.9% 1000 Ml Inj (Ns 1000 M (03/15/17 06:13) Ct Abd/Pel W/O Iv Contrast (03/15/17 06:18) Sodium Chlor 0.9% 1000 Ml Inj (Ns 1000 M (03/15/17 06:18) Labs Laboratory Tests Test 03/15/17 05:20 White Blood Count 8.7 TH/MM3 Red Blood Count 5.31 MIL/MM3 Hemoglobin 14.1 GM/DL Hematocrit 44.7 % Mean Corpuscular Volume 84.2 FL Mean Corpuscular Hemoglobin 26.5 PG Mean Corpuscular Hemoglobin Concent 31.5 % Red Cell Distribution Width 13.4 % Platelet Count 236 TH/MM3 Mean Platelet Volume 7.7 FL Neutrophils (%) (Auto) 80.8 % Lymphocytes (%) (Auto) 12.6 % Monocytes (%) (Auto) 4.0 % Eosinophils (%) (Auto) 2.0 % Basophils (%) (Auto) 0.6 % Neutrophils # (Auto) 7.0 TH/MM3 Lymphocytes # (Auto) 1.1 TH/MM3 Monocytes # (Auto) 0.3 TH/MM3 Eosinophils # (Auto) 0.2 TH/MM3 Basophils # (Auto) 0.1 TH/MM3 CBC Comment DIFF FINAL Differential Comment Calcium Level 8.9 MG/DL Sodium Level 139 MEQ/L Potassium Level 4.0 MEQ/L Chloride Level 106 MEQ/L [facility] Medical Decision Making Medical Screen Exam Complete: Yes Emergency Medical Condition: Yes Medical Record Reviewed: Yes Differential Diagnosis Ureteral stone, ureteral kinking, other blockage in the ureter, urinary tract infection Narrative Course It is now 0700 and the patient is transferred to Dr. Gallagher. The patient at this time is pain-free. However, when I palpate his abdomen he still has pain. Rosendo Simms MD Mar 15, 2017 06:18
[2017-03-15 06:34] VITALS: BP 159/77; PULSE 59; RESP 16; O2SAT 96
[2017-03-15 06:43] LABS: BASOPHIL # 0.1 TH/MM3 (0-0.2); BASOPHIL % 0.6 % (0.0-2.0); EOSINOPHIL # 0.2 TH/MM3 (0-0.4); HEMATOCRIT 44.7 % (39.0-51.0); HEMOGLOBIN 14.1 GM/DL (13.0-17.0); LYMPH % 12.6 % (9.0-44.0); LYMPHOCYTE # 1.1 TH/MM3 (1.0-4.8); MEAN CELL VOLUME 84.2 FL (80.0-100.0); MEAN CORPUSCULAR HEMOGLOBIN 26.5 PG (27.0-34.0); MEAN CORPUSCULAR HGB CONC 31.5 % (32.0-36.0); MEAN PLATELET VOLUME 7.7 FL (7.0-11.0); MONOCYTE # 0.3 TH/MM3 (0-0.9); NEUT % 80.8 % (16.0-70.0); PLATELET COUNT 236 TH/MM3 (150-450); RED BLOOD COUNT 5.31 MIL/MM3 (4.50-5.90); RED CELL DISTRIBUTION WIDTH 13.4 % (11.6-17.2); WHITE BLOOD COUNT 8.7 TH/MM3 (4.0-11.0)
--- NOTE | 2017-03-15 06:58 | RADRPT ---
EXAM DATE/TIME: 03/15/2017 06:33 [facility] COMPARISON: No previous studies available for comparison. INDICATIONS : Right flank pain. ORAL CONTRAST: No oral contrast ingested. RADIATION DOSE: 24.20 CTDIvol (mGy) MEDICAL HISTORY : Hypertension. Renal calculi. SURGICAL HISTORY : renal stent ENCOUNTER: Initial ACUITY: 1 day PAIN SCALE: 8/10 LOCATION: Right flank TECHNIQUE: Volumetric scanning of the abdomen and pelvis was performed. Using automated exposure control and ad justment of the mA and/or kV according to patient size, radiation dose was kept as low as reasonably achievable to obtain optimal diagnostic quality images. DICOM format image data is available electro nically for review and comparison. FINDINGS: LOWER LUNGS: There is mild suspected atelectasis of the posterior lung bases. LIVER: There are 4 nonspecific hyperdense masses seen in the liver with the largest one measuring 3.7 cm in the posterior segment of the right lobe of the liver.. SPLEEN: Normal size without lesion. PANCREAS: Within normal limits. KIDNEYS: There are multiple small stones in the collecting systems bilaterally. There is severe dilatation of the right collecting system. There is an obstructing 1 cm stone at the proximal right ureter. There i s right perinephric stranding. ADRENAL GLANDS: Within normal limits. VASCULAR: There is no aortic aneurysm. BOWEL/MESENTERY: There are scattered colonic diverticula. ABDOMINAL WALL: Within normal limits. RETROPERITONEUM: There is no lymphadenopathy. BLADDER: No wall thickening or mass. REPRODUCTIVE: Within normal limits. INGUINAL: There is no lymphadenopathy or hernia. MUSCULOSKELETAL: Within normal limits for patient age. CONCLUSION: 1 cm stone at the proximal right ureter causing severe dilatation of the right collecting system and right perinephric stranding. There are numerous tiny nonobstructing stone seen in the collecting bila terally. Gino Gordon MD on March 15, 2017 at 6:50 Board Certified Radiologist. This report was verified electronically.
[2017-03-15 06:59] LABS: BICARBONATE 24.1 MEQ/L (21.0-32.0); CALCIUM 8.9 MG/DL (8.5-10.1)
[2017-03-15 07:03] LABS: CREATININE 1.4 MG/DL (0.60-1.30)
[2017-03-15] MEDS ORDERED: PROC10TA PO (07:04)
[2017-03-15] MEDS ORDERED: PERC7.5T13 PO (07:04)
[2017-03-15] MEDS ORDERED: IBUP1TAB7 PO (07:04)
[2017-03-15] MEDS ORDERED: TAMS5CAP PO (07:04)
[2017-03-15] MEDS ORDERED: TAMSULOSIN HCL 0.4 MG CAP PO ONE (07:15)
[2017-03-15 07:31] VITALS: BP 164/74; TEMP 97.6
[2017-03-15] MEDS ORDERED: ONDANSETRON HCL 4 MG/2 ML VIAL IV PUSH ONE (10:00)
[2017-03-15 10:01] LABS: BILIRUBIN, URINE NEG (NEG); BLOOD, URINE LARGE (NEG); GLUCOSE,URINE NEG (NEG); KETONE, URINE NEG (NEG); NITRITE,URINE NEG (NEG); URINE LEUKOCYTE ESTERASE NEG (NEG)
[2017-03-15 10:06] LABS: RBC, URINE 15-19 /hpf (0-3); SQUAMOUS EPITHELIAL CELL URINE 0-5 /hpf (0-5); URINE COLOR YELLOW (YELLW/STRAW); WBC, URINE 0-2 /hpf (0-5)
--- NOTE | 2017-03-15 11:02 | PD ---
Physical Exam Narrative Patient originally seen by Dr. Simms. Patient is a 41 year old male who comes in complaining of flank pain that started recently. He also developed nausea and vomiting. Patient is sleeping comfortably, reports resolution of his pain. Data Data Last Documented VS Vital Signs Date Time Temp Pulse Resp B/P (MAP) Pulse Ox O2 Delivery O2 Flow Rate FiO2 03/15/17 07:31 97.6 51 16 164/74 (104) 97 Orders Orders Complete Blood Count With Diff (03/15/17 06:13) Basic Metabolic Panel (Bmp) (03/15/17 06:13) Urinalysis - C+S If Indicated (03/15/17 06:13) Ecg Monitoring (03/15/17 06:13) Iv Access Insert/Monitor (03/15/17 06:13) Hydromorphone Pf Inj (Dilaudid Pf Inj) (03/15/17 06:15) Ketorolac Inj (Toradol Inj) (03/15/17 06:15) Sodium Chloride 0.9% Flush (Ns Flush) (03/15/17 06:15) Sodium Chlor 0.9% 1000 Ml Inj (Ns 1000 M (03/15/17 06:13) Ct Abd/Pel W/O Iv Contrast (03/15/17 06:18) Sodium Chlor 0.9% 1000 Ml Inj (Ns 1000 M (03/15/17 06:18) Tamsulosin (Flomax) (03/15/17 07:15) Ed Discharge Order (03/15/17 07:08) Sodium Chlor 0.9% 1000 Ml Inj (Ns 1000 M (03/15/17 09:15) Ondansetron Inj (Zofran Inj) (03/15/17 10:00) Mandatory Outpatient Referral (03/15/17 10:57) Labs Laboratory Tests Test 03/15/17 05:20 03/15/17 09:35 White Blood Count 8.7 TH/MM3 Red Blood Count 5.31 MIL/MM3 Hemoglobin 14.1 GM/DL Hematocrit 44.7 % Mean Corpuscular Volume 84.2 FL Mean Corpuscular Hemoglobin 26.5 PG Mean Corpuscular Hemoglobin Concent 31.5 % Red Cell Distribution Width 13.4 % Platelet Count 236 TH/MM3 Mean Platelet Volume 7.7 FL Neutrophils (%) (Auto) 80.8 % Lymphocytes (%) (Auto) 12.6 % Monocytes (%) (Auto) 4.0 % Eosinophils (%) (Auto) 2.0 % Basophils (%) (Auto) 0.6 % Neutrophils # (Auto) 7.0 TH/MM3 Lymphocytes # (Auto) 1.1 TH/MM3 Monocytes # (Auto) 0.3 TH/MM3 Eosinophils # (Auto) 0.2 TH/MM3 Basophils # (Auto) 0.1 TH/MM3 CBC Comment DIFF FINAL Differential Comment Blood Urea Nitrogen 16 MG/DL Creatinine 1.40 MG/DL Random Glucose 113 MG/DL Calcium Level 8.9 MG/DL Sodium Level 139 MEQ/L Potassium Level 4.0 MEQ/L Chloride Level 106 MEQ/L Carbon Dioxide Level 24.1 MEQ/L Anion Gap 9 MEQ/L Estimat Glomerular Filtration Rate 55 ML/MIN Urine Color YELLOW Urine Turbidity SLIGHT Urine pH 6.0 Urine Specific [place] 1.022 Urine Protein 30 mg/dL Urine Glucose (UA) NEG mg/dL Urine Ketones NEG mg/dL Urine Occult Blood LARGE Urine Nitrite NEG Urine Bilirubin NEG Urine Leukocyte Esterase NEG Urine RBC 15-19 /hpf Urine WBC 0-2 /hpf Urine Squamous Epithelial Cells 0-5 /hpf Urine Bacteria NONE /hpf Microscopic Urinalysis Comment CULT NOT INDICATED MDM Supervised Visit with SAHARA: No Narrative Course CT abd/pelvis shows a 1cm obstructing stone. Last 24 hours Impressions Abdomen/Pelvis CT 03/15/17 0618 Signed Impressions: Service Date/Time: Wednesday, March 15, 2017 06:33 - CONCLUSION: 1 cm stone at the proximal right ureter causing severe dilatation of the right collecting system and right perinephric stranding. There are numerous tiny nonobstructing stone seen in the collecting bilaterally. Gino Gordon MD I spoke with Dr. Garvin of urology who says that if his pain is controlled, he can follow up in the office. Urinalysis is negative for infection. Patient discharged with prescriptions for pain medicine, Zofran, Flomax. Advised to follow up with Dr. Garvin as soon as possible. Advised to return at any time for any worsening symptoms. Diagnosis Primary Impression: Calculus of ureter Referrals: Jean Garvin MD call for appointment Patient Instructions: General Instructions, Kidney Stones (ED) Departure Forms: Tests/Procedures Additional Instruction: Follow up with urology as soon as possible. Take Ibuprofen and pain medicine as needed. Return at any time for any worsening symptoms. Scripts Prochlorperazine Maleate (Prochlorperazine Maleate) 10 Mg Tab 10 MG PO Q6H Y for NAUSEA OR VOMITING, #30 TAB 0 Refills Prov: Rosendo Simms MD 03/15/17 Tamsulosin (Flomax) 0.4 Mg Cap 0.4 MG PO HS for Manage Prostate Problems, #30 CAP 0 Refills Prov: Rosendo Simms MD 03/15/17 Oxycodone-Acetaminophen (Percocet) 7.5-325 mg Tab 1 TAB PO Q4H Y for PAIN, #30 TAB 0 Refills Prov: Rosendo Simms MD 03/15/17 Ibuprofen (Ibuprofen) 800 Mg Tab 800 MG PO TID, #45 TAB 0 Refills Prov: Rosendo Simms MD 03/15/17 Disposition: 01 DISCHARGE HOME Condition: Stable Elmira Mason MD Mar 15, 2017 11:02
== END 2017-03-15 11:26 | disposition home or self-care (01) ==
LOC: PHED 04:55
DX: N20.1 Calculus of ureter (principal); I10 Essential (primary) hypertension; F17.210 Nicotine dependence, cigarettes, uncomplicated; Z87.442 Personal history of urinary calculi; Z79.899 Other long term (current) drug therapy
CPT/HCPCS: 74176; 80048; 81001; 85025; 96361; 96374; 96375; 99284; J1170; J1885; J2405; J7030

== ENCOUNTER → 2017-05-19 | Outpatient (CLI) | payer OTHER ==
[~2017-05-19] MED LIST changes: +PERC7.5T13 PO; +PROC10TA PO; +TAMS5CAP PO
[2017-05-19 16:14] LABS: HEMATOCRIT 45.4 % (39.0-51.0); HEMOGLOBIN 15.1 GM/DL (13.0-17.0); MEAN CELL VOLUME 84.4 FL (80.0-100.0); MEAN CORPUSCULAR HEMOGLOBIN 28.1 PG (27.0-34.0); MEAN CORPUSCULAR HGB CONC 33.3 % (32.0-36.0); MEAN PLATELET VOLUME 6.9 FL (7.0-11.0); PLATELET COUNT 249 TH/MM3 (150-450); RED BLOOD COUNT 5.38 MIL/MM3 (4.50-5.90); RED CELL DISTRIBUTION WIDTH 14.1 % (11.6-17.2); WHITE BLOOD COUNT 7.4 TH/MM3 (4.0-11.0)
[2017-05-19 16:53] LABS: BICARBONATE 29.1 MEQ/L (21.0-32.0); CALCIUM 9.1 MG/DL (8.5-10.1); CREATININE 1.54 MG/DL (0.60-1.30)
== END ==
LOC: CLAB 15:58
DX: N20.0 Calculus of kidney (principal)
CPT/HCPCS: 36415; 80048; 85027